=== PATIENT | male | born 1980 | race Hispanic/Latino ===

== ENCOUNTER 2020-11-02 13:53 | Inpatient (IN) | payer OTHER ==
[~2020-11-02] VITALS: Ht 167.6 cm; Wt 93.8 kg
[2020-11-02 15:29] LABS: BASOPHILS % (AUTO) 0.3 % (0.0-5.0); EOSINOPHILS % (AUTO) 0.2 % (0.0-8.0); HEMATOCRIT 49.8 % (42-54); LYMPHOCYTES % (AUTO) 9.6 % (21.0-51.0); MEAN CORPUSCULAR HEMOGLOBIN 27.2 pg (27.0-33.0); MEAN CORPUSCULAR HGB CONC 33.7 g/dL (32.0-36.0); MEAN CORPUSCULAR VOLUME 80.7 fL (79-99); MONOCYTES % (AUTO) 6.4 % (3.0-13.0); NEUTROPHILS % (AUTO) 82.7 % (40.0-77.0); PLATELET COUNT (AUTO) 263 K/uL (130-400); RED BLOOD CELL COUNT(AUTO) 6.17 MIL/uL (4.50-6.20); RED CELL DISTRIBUTION WIDTH 12.9 % (11.0-15.5); WHITE BLOOD COUNT (AUTO) 17.3 K/uL (4.8-10.8)
[2020-11-02] MEDS ORDERED: CEFEPIME HCL 2 GM VIAL IVP STA (15:33)
[2020-11-02 15:51] LABS: CREATININE 0.8 mg/dL (0.5-1.5); POTASSIUM 3.7 mmol/L (3.5-5.1)
[2020-11-02 15:56] LABS: ALBUMIN 4.4 g/dL (3.5-5.0); TOTAL PROTEIN, SERUM 9.6 g/dL (6.0-8.3)
[2020-11-02] MEDS ORDERED: VANCOMYCIN 1G 1 GM in 0.9% NACL 250ML 250 ML IVPB SCH (16:00)
[2020-11-02] MEDS ORDERED: 0.9% NACL 250ML 250 ML IV ONE (16:00)
[2020-11-02] MEDS ORDERED: VANCOMYCIN KIT 1 GM/250 ML IV.KIT IV ONE (16:00)
[2020-11-02 16:26] LABS: CRP QUANTITATIVE 295.1 mg/L (0.00-9.0)
[2020-11-02] MEDS ORDERED: LACTATED RINGERS 1000ML 2,000 ML IV ONE (17:00)
[2020-11-02] MEDS ORDERED: ONDANSETRON 4MG INJ IV PRN (19:00)
[2020-11-02] MEDS ORDERED: LACTULOSE 20 GM/30 ML UDCUP PO PRN (19:00)
[2020-11-02] MEDS: CEFEPIME HCL 1 GM VIAL IVP SCH (19:00)
[2020-11-02] MEDS ORDERED: VANCOMYCIN PROTOCOL PER PHARMACY IV SCH (19:00)
[2020-11-02] MEDS ORDERED: ACETAMINOPHEN 325 MG TAB PO PRN (19:00)
[2020-11-02] MEDS: VANCOMYCIN KIT 1 GM/250 ML IV.KIT IV SCH (20:00)
[2020-11-02] MEDS: 0.9% NACL 250ML 250 ML IV SCH (20:00)
[2020-11-02] MEDS: FAMOTIDINE 20MG TAB PO SCH (21:42)
[2020-11-02] MEDS: INSULIN HUMULIN R 100 UNIT/ML 3ML SQ SCH (21:42)
[2020-11-02] MEDS ORDERED: ATOR10TA69 PO (22:14)
[2020-11-02] MEDS ORDERED: LISI10TA24 PO (22:14)
[2020-11-02] MEDS ORDERED: METF-444 PO (22:14)
[2020-11-02 23:13] LABS: APPEARANCE,URINE Clear (CLEAR); BILIRUBIN,URINE Negative (NEGATIVE); COLOR,URINE Yellow (YELLOW); GLUCOSE, URINE (UA) >=1000 mg/dL (NEGATIVE); KETONES,URINE >=160 mg/dL (NEGATIVE); LEUKOCYTE ESTERASE ,URINE Negative (NEGATIVE); NITRATE,URINE Negative (NEGATIVE); OCCULT BLOOD,URINE Negative (NEGATIVE); PH,URINE 5.5 (5.0-8.0); PROTEIN,URINE POS 2+ mg/dL (NEGATIVE); UROBILINOGEN,URINE 0.2 mg/dL (0.2-1.0)
[2020-11-02] MEDS: MORPHINE 2 MG SYG IV PRN (23:19)
[2020-11-02 23:26] LABS: BACTERIA,URINE None Seen /HPF (None Seen); RBC,URINE None Seen /HPF (0-1); SQUAMOUS EPITHELIAL CELL,UR Rare /HPF (0-2); WBC,URINE None Seen /HPF (0-1); YEAST,URINE BUDDING None Seen /HPF (None Seen)
[2020-11-03] VITALS (8 sets, daily range): BP systolic 130–149; BP diastolic 67–87
[2020-11-03] MEDS: ACETAMINOPHEN 325 MG TAB PO PRN ×3 (02:40→17:22)
[2020-11-03] MEDS: VANCOMYCIN KIT 1 GM/250 ML IV.KIT IV SCH ×2 (03:49→12:01)
[2020-11-03] MEDS: 0.9% NACL 250ML 250 ML IV SCH ×3 (03:49→20:00)
[2020-11-03 05:53] LABS: BASOPHILS % (AUTO) 0.3 % (0.0-5.0); EOSINOPHILS % (AUTO) 0.3 % (0.0-8.0); HEMATOCRIT 41.3 % (42-54); LYMPHOCYTES % (AUTO) 11.4 % (21.0-51.0); MEAN CORPUSCULAR HEMOGLOBIN 27.2 pg (27.0-33.0); MEAN CORPUSCULAR HGB CONC 33.2 g/dL (32.0-36.0); MEAN CORPUSCULAR VOLUME 82.1 fL (79-99); NEUTROPHILS % (AUTO) 79.4 % (40.0-77.0); PLATELET COUNT (AUTO) 208 K/uL (130-400); RED BLOOD CELL COUNT(AUTO) 5.03 MIL/uL (4.50-6.20); RED CELL DISTRIBUTION WIDTH 12.9 % (11.0-15.5); WHITE BLOOD COUNT (AUTO) 15.6 K/uL (4.8-10.8)
[2020-11-03 06:09] LABS: CREATININE 0.7 mg/dL (0.5-1.5); POTASSIUM 3.9 mmol/L (3.5-5.1)
[2020-11-03] MEDS: CEFEPIME HCL 1 GM VIAL IVP SCH ×2 (06:59→18:51)
[2020-11-03 08:44] LABS: HEMOGLOBIN A1C 11.6 % (4.0-6.0)
[2020-11-03] MEDS: INSULIN HUMULIN R 100 UNIT/ML 3ML SQ SCH ×4 (09:02→21:03)
[2020-11-03] MEDS: FAMOTIDINE 20MG TAB PO SCH ×2 (09:02→21:02)
[2020-11-03] MEDS: ENOXAPARIN SODIUM 40 MG/0.4 ML SYRINGE SQ SCH (09:02)
[2020-11-03] MEDS: LISINOPRIL 10 MG TABLET PO SCH (09:02)
[2020-11-03] MEDS: MORPHINE 2 MG SYG IV PRN ×2 (09:38→21:03)
[2020-11-03] MEDS ORDERED: INSULIN GLARGINE 100 UNITS/ML 10 ML VIAL SQ SCH (13:30)
[2020-11-03] MEDS ORDERED: ZOSYN 3.375GM+NS 50ML 3.38 GM in 0.9%NACL 50ML 50 ML IV SCH (16:00)
[2020-11-03] MEDS ORDERED: 0.9%NACL 100ML 100 ML ONE ×2 (17:33→18:50)
[2020-11-03] MEDS: ZOSYN 3.375GM+NS 50ML 50 ML IV SCH (17:45)
[2020-11-03] MEDS: ATORVASTATIN 10 MG TABLET PO SCH (21:02)
[2020-11-04] VITALS (7 sets, daily range): BP systolic 113–152; BP diastolic 48–76
[2020-11-04] MEDS: ZOSYN 3.375GM+NS 50ML 50 ML IV SCH ×3 (01:15→17:03)
[2020-11-04] MEDS: MORPHINE 2 MG SYG IV PRN ×3 (02:45→22:53)
[2020-11-04] MEDS: 0.9% NACL 250ML 250 ML IV SCH ×3 (03:31→23:25)
[2020-11-04] MEDS: CEFEPIME HCL 1 GM VIAL IVP SCH (06:24)
[2020-11-04] MEDS: INSULIN HUMULIN R 100 UNIT/ML 3ML SQ SCH ×5 (07:30→20:34)
[2020-11-04 07:55] LABS: BASOPHILS % (AUTO) 0.4 % (0.0-5.0); EOSINOPHILS % (AUTO) 0.6 % (0.0-8.0); HEMATOCRIT 40.3 % (42-54); LYMPHOCYTES % (AUTO) 11.3 % (21.0-51.0); MEAN CORPUSCULAR HEMOGLOBIN 27.4 pg (27.0-33.0); MEAN CORPUSCULAR HGB CONC 33.7 g/dL (32.0-36.0); MEAN CORPUSCULAR VOLUME 81.3 fL (79-99); MONOCYTES % (AUTO) 7.3 % (3.0-13.0); NEUTROPHILS % (AUTO) 79.7 % (40.0-77.0); PLATELET COUNT (AUTO) 233 K/uL (130-400); RED BLOOD CELL COUNT(AUTO) 4.96 MIL/uL (4.50-6.20); RED CELL DISTRIBUTION WIDTH 12.7 % (11.0-15.5); WHITE BLOOD COUNT (AUTO) 13.5 K/uL (4.8-10.8)
[2020-11-04] MEDS: ENOXAPARIN SODIUM 40 MG/0.4 ML SYRINGE SQ SCH (08:08)
[2020-11-04] MEDS: LISINOPRIL 10 MG TABLET PO SCH (08:08)
[2020-11-04] MEDS: FAMOTIDINE 20MG TAB PO SCH ×2 (08:08→20:34)
[2020-11-04 08:09] LABS: ALBUMIN 2.7 g/dL (3.5-5.0); BILIRUBIN,TOTAL 0.6 mg/dL (0.2-1.0); CREATININE 0.7 mg/dL (0.5-1.5); POTASSIUM 3.6 mmol/L (3.5-5.1); TOTAL PROTEIN, SERUM 7.1 g/dL (6.0-8.3)
[2020-11-04] MEDS ORDERED: VANCOMYCIN PROTOCOL PER PHARMACY IV PRN (13:00)
[2020-11-04] MEDS ORDERED: COMPOUND IV REFRIGERATED 1 EACH IVSOLN MISC PRN (13:30)
[2020-11-04] MEDS: VANCOMYCIN 1.25GM/NS 250ML IVPB SCH ×2 (13:39)
[2020-11-04] MEDS: ATORVASTATIN 10 MG TABLET PO SCH (20:34)
[2020-11-04] MEDS: INSULIN GLARGINE 100 UNITS/ML 10 ML VIAL SQ SCH (20:34)
[2020-11-05] VITALS (19 sets, daily range): BP systolic 128–161; BP diastolic 63–99
[2020-11-05] MEDS: ZOSYN 3.375GM+NS 50ML 50 ML IV SCH ×3 (00:34→17:53)
[2020-11-05] MEDS: VANCOMYCIN 1.25GM/NS 250ML IVPB SCH ×4 (02:58→14:00)
[2020-11-05] MEDS: 0.9% NACL 250ML 250 ML IV SCH ×3 (04:00→17:54)
[2020-11-05] MEDS: INSULIN HUMULIN R 100 UNIT/ML 3ML SQ SCH ×7 (06:36→21:05)
[2020-11-05] MEDS: ENOXAPARIN SODIUM 40 MG/0.4 ML SYRINGE SQ SCH (09:00)
[2020-11-05] MEDS: FAMOTIDINE 20MG TAB PO SCH ×2 (10:20→20:58)
[2020-11-05] MEDS: LISINOPRIL 10 MG TABLET PO SCH (10:21)
[2020-11-05] MEDS ORDERED: BUPIVACAINE/PF 0.5% 30ML VIAL ONE (12:02)
[2020-11-05] MEDS ORDERED: LIDOCAINE HCL 1% 20 ML VIAL ONE (12:02)
[2020-11-05] MEDS ORDERED: FENTANYL CITRATE PF 50 MCG/1 ML 2ML VIAL ONE ×2 (12:20→12:39)
[2020-11-05] MEDS ORDERED: MIDAZOLAM HCL 1 MG/ML 2ML VIAL ONE (12:20)
[2020-11-05] MEDS ORDERED: PROPOFOL 10 MG/ML 20ML VIAL IV ONE (12:22)
[2020-11-05] MEDS ORDERED: 0.9%NACL 1000ML 1,000 ML IV ONE (13:18)
[2020-11-05] MEDS: MORPHINE 2 MG SYG IV PRN ×2 (15:26→23:44)
[2020-11-05] MEDS ORDERED: HYDROCODONE/ACETAMINOPHEN 5/325 MG TAB ONE (17:51)
[2020-11-05] MEDS ORDERED: HYDROCODONE/ACETAMINOPHEN 5/325 MG TAB PO ONE (18:00)
[2020-11-05] MEDS: ATORVASTATIN 10 MG TABLET PO SCH (20:58)
[2020-11-05] MEDS: INSULIN GLARGINE 100 UNITS/ML 10 ML VIAL SQ SCH (21:05)
[2020-11-06] VITALS (7 sets, daily range): BP systolic 132–155; BP diastolic 71–87
[2020-11-06] MEDS: ZOSYN 3.375GM+NS 50ML 50 ML IV SCH ×3 (01:35→16:56)
[2020-11-06] MEDS: VANCOMYCIN 1.25GM/NS 250ML IVPB SCH ×2 (01:39)
[2020-11-06] MEDS: 0.9% NACL 250ML 250 ML IV SCH ×3 (04:00→20:00)
[2020-11-06] MEDS: INSULIN HUMULIN R 100 UNIT/ML 3ML SQ SCH ×7 (06:09→21:05)
[2020-11-06] MEDS: LISINOPRIL 10 MG TABLET PO SCH (09:54)
[2020-11-06] MEDS: ENOXAPARIN SODIUM 40 MG/0.4 ML SYRINGE SQ SCH (09:54)
[2020-11-06] MEDS: FAMOTIDINE 20MG TAB PO SCH ×2 (09:54→20:54)
[2020-11-06] MEDS: VANCOMYCIN 1.5GM/NS 250ML IV SCH ×4 (09:58→20:56)
[2020-11-06 13:01] LABS: BASOPHILS % (AUTO) 0.6 % (0.0-5.0); EOSINOPHILS % (AUTO) 1.6 % (0.0-8.0); HEMATOCRIT 39.6 % (42-54); LYMPHOCYTES % (AUTO) 17.8 % (21.0-51.0); MEAN CORPUSCULAR HGB CONC 34.1 g/dL (32.0-36.0); MONOCYTES % (AUTO) 6.9 % (3.0-13.0); NEUTROPHILS % (AUTO) 71.7 % (40.0-77.0); PLATELET COUNT (AUTO) 262 K/uL (130-400); RED BLOOD CELL COUNT(AUTO) 4.83 MIL/uL (4.50-6.20); RED CELL DISTRIBUTION WIDTH 12.6 % (11.0-15.5); WHITE BLOOD COUNT (AUTO) 10.7 K/uL (4.8-10.8)
[2020-11-06 13:13] LABS: CREATININE 0.7 mg/dL (0.5-1.5); POTASSIUM 3.3 mmol/L (3.5-5.1)
[2020-11-06] MEDS: ATORVASTATIN 10 MG TABLET PO SCH (20:54)
[2020-11-06] MEDS: ACETAMINOPHEN 325 MG TAB PO PRN (20:59)
[2020-11-06] MEDS: INSULIN GLARGINE 100 UNITS/ML 10 ML VIAL SQ SCH (21:06)
[2020-11-07] MEDS: ZOSYN 3.375GM+NS 50ML 50 ML IV SCH ×2 (00:36→08:57)
[2020-11-07 04:00] VITALS: BP 142/87
[2020-11-07] MEDS: 0.9% NACL 250ML 250 ML IV SCH ×2 (04:00→11:47)
[2020-11-07] MEDS: INSULIN HUMULIN R 100 UNIT/ML 3ML SQ SCH ×4 (06:24→11:38)
[2020-11-07 08:02] VITALS: BP 144/91
[2020-11-07] MEDS: FAMOTIDINE 20MG TAB PO SCH (08:57)
[2020-11-07] MEDS: LISINOPRIL 10 MG TABLET PO SCH (08:57)
[2020-11-07] MEDS: ENOXAPARIN SODIUM 40 MG/0.4 ML SYRINGE SQ SCH (08:57)
[2020-11-07] MEDS: VANCOMYCIN 1.5GM/NS 250ML IV SCH ×2 (08:58)
[2020-11-07 11:56] VITALS: BP 153/96
[2020-11-07] MEDS ORDERED: LEVO750T46 PO (15:29)
[2020-11-07] MEDS ORDERED: INSLAN SQ (15:29)
== END 2020-11-07 16:20 | disposition home health service (06) | DRG 854 ==
LOC: EDH 13:53 → OBSVTOIN 18:55 → EDHIP 18:55 → 3DH 11-04 21:55
PROVIDERS: ADMIT Internal Medicine; ATTEND Internal Medicine
PROC: 0Y9N0ZZ Drainage of Left Foot, Open Approach (ICD-10-PCS; principal; 2020-11-03)
PROC: 0Y6Y0Z0 Detachment at Left 5th Toe, Complete, Open Approach (ICD-10-PCS; 2020-11-05)
DX: A41.9 Sepsis, unspecified organism (principal); E11.52 Type 2 diabetes mellitus with diabetic peripheral angiopathy with gangrene; E87.1 Hypo-osmolality and hyponatremia; L03.116 Cellulitis of left lower limb; L02.612 Cutaneous abscess of left foot; M86.8X7 Other osteomyelitis, ankle and foot; I96 Gangrene, not elsewhere classified; E11.40 Type 2 diabetes mellitus with diabetic neuropathy, unspecified; E11.65 Type 2 diabetes mellitus with hyperglycemia; B95.8 Unspecified staphylococcus as the cause of diseases classified elsewhere; E11.621 Type 2 diabetes mellitus with foot ulcer; E11.69 Type 2 diabetes mellitus with other specified complication; E66.9 Obesity, unspecified; L97.529 Non-pressure chronic ulcer of other part of left foot with unspecified severity; S91.105A Unspecified open wound of left lesser toe(s) without damage to nail, initial encounter; E78.5 Hyperlipidemia, unspecified; I10 Essential (primary) hypertension; Y93.89 Activity, other specified; Y92.89 Other specified places as the place of occurrence of the external cause; Y99.8 Other external cause status; Z68.33 Body mass index [BMI] 33.0-33.9, adult; Z79.84 Long term (current) use of oral hypoglycemic drugs; Z83.3 Family history of diabetes mellitus
CPT/HCPCS: 36415; 71045; 73630; 73718; 80048; 80053; 80202; 81001; 82948; 83036; 83605; 84145; 85025; 86140; 87040; 87070; 87076; 87077; 87186; 87205; 87635; 93005; 97039; G0378; J0692; J1650; J1815; J2250; J2405; J2543; J2704; J3010; J3370; J3490; J7030; J7050

== ENCOUNTER → 2020-12-01 | Outpatient (CLI) | payer OTHER ==
[~2020-12-01] MED LIST: ATOR10TA69 PO; INSLAN SQ; LEVO750T46 PO; LIDOCAINE HCL 4% LTA SOL 4 ML VIAL TP ONE; LISI10TA24 PO
== END | disposition home or self-care (01) ==
LOC: WHH 09:00
PROVIDERS: ATTEND Podiatrist Foot & Ankle Surgery
DX: T87.89 Other complications of amputation stump (principal); E11.621 Type 2 diabetes mellitus with foot ulcer; L97.525 Non-pressure chronic ulcer of other part of left foot with muscle involvement without evidence of necrosis; L40.9 Psoriasis, unspecified; E11.52 Type 2 diabetes mellitus with diabetic peripheral angiopathy with gangrene; I96 Gangrene, not elsewhere classified; E11.40 Type 2 diabetes mellitus with diabetic neuropathy, unspecified; E11.69 Type 2 diabetes mellitus with other specified complication; M86.8X7 Other osteomyelitis, ankle and foot; I10 Essential (primary) hypertension; E78.5 Hyperlipidemia, unspecified; E66.9 Obesity, unspecified; Z68.33 Body mass index [BMI] 33.0-33.9, adult; Z79.4 Long term (current) use of insulin; Z79.899 Other long term (current) drug therapy; Y83.5 Amputation of limb(s) as the cause of abnormal reaction of the patient, or of later complication, without mention of misadventure at the time of the procedure; Y92.238 Other place in hospital as the place of occurrence of the external cause
CPT/HCPCS: 99214; A6209; A6450